=== PATIENT | male | born 1970 | race Caucasian/White ===

== ENCOUNTER → 2017-12-08 | Outpatient (CLI) | payer OTHER | LOC: FIMAGING 18:14 | PROVIDERS: ATTEND Family Medicine | DX: M75.42 Impingement syndrome of left shoulder (principal); S43.432A Superior glenoid labrum lesion of left shoulder, initial encounter; X58.XXXA Exposure to other specified factors, initial encounter ==

== ENCOUNTER 2018-01-28 13:39 | Emergency (ER) | payer OTHER ==
--- NOTE | 2018-01-28 15:02 | EDPHY ---
H & P Stated Complaint: Slight bleeding in throat p tonsilectomy [employer]. - Personal History Current Tetanus/Diphtheria Vaccine: Unsure - Medical/Surgical History Hx Asthma: No Hx Chronic Respiratory Disease: No Hx Diabetes: No Hx Cardiac Disease: No Hx Renal Disease: No Hx Cirrhosis: No Hx Alcoholism: No Hx HIV/AIDS: No Hx Splenectomy or Spleen Trauma: No Other PMH: tonsillectomy, - Social History Smoking Status: Never smoked Time Seen by Provider: 01/28/18 15:01 HPI/ROS: CHIEF COMPLAINT: "My tonsils are bleeding" HISTORY OF PRESENT ILLNESS: 47-year-old male postop day 4 post tonsillectomy performed by Dr Mckeon at [facility] complaining of swallowing blood and tonsillar bleeding. Contacted his ENT surgeon who recommend he go to the closest ER for evaluation. Pain is controlled. No dizziness. No chest pain. No dyspnea. PHYSICAL EXAM (Prior to examination, patient consented to physical exam, hands were washed and my usual and customary physical exam procedures followed) 1) GENERAL: Well-developed, well-nourished, alert and oriented. Appears to be in no acute distress. 2) HEAD: Normocephalic 3) HEENT: sclera anicteric . Post surgical changes noted to the bilateral tonsils with no active bleeding. When he expectorates a moderate amount of blood is in his phlegm. Airway is patent. 4) LUNGS: Breathing comfortably. (Daniel Dougherty) Constitutional: Initial Vital Signs Temperature (C) 36.5 C 01/28/18 14:00 Heart Rate 74 01/28/18 14:00 Respiratory Rate 16 01/28/18 14:00 Blood Pressure 127/72 H 01/28/18 14:00 O2 Sat (%) 98 01/28/18 14:00 O2 Delivery Mode Room Air Allergies/Adverse Reactions: celecoxib [From Celebrex] Allergy (Verified 01/28/18 13:59) Home Medications: Medication Instructions Recorded Cephalexin [Keflex (*)] 500 mg PO QID #28 cap 08/24/10 Hydrocodone Bit/Acetaminophen 1 - 2 tab PO Q4-6PRN PRN #11 tab 08/24/10 [Vicodin 5/500] Phenazopyridine HCl [Pyridium] 100 mg PO TID #6 tab 08/24/10 Medical Decision Making ED Course/Re-evaluation: 3:25 p.m.: Consultation with ENT VITOR Doran. Either she or Dr Heredia will come to ER to evaluate patient. 3:30 p.m.: Dr. Zach Bonds in the ER to evaluate patient 3:45 p.m.: CHARANJIT ADLER recommends IV Decadron, IV fluids, analgesia, will recheck patient in a short period after silver nitrate cautery was performed by themselves in the ER. 4:30 p.m.: ENT VITOR Doran has re-evaluated the patient, he remains hemostatic. Patient may be discharged at this time. He has been given usual and customary ENT precautions instructions. He feels comfortable being discharged. I saw this patient independently based on established practice protocols. Care of patient under supervision of secondary supervising physician Dr Loja with whom I discussed case. (Daniel Dougherty) - Data Points Medications Given: Discontinued Medications Dexamethasone (Decadron Injection) 10 mg IVP EDNOW ONE Stop: 01/28/18 15:52 Last Admin: 01/28/18 16:12 Dose: 10 mg Sodium Chloride (Ns) 1,000 mls @ 0 mls/hr IV ONCE ONE PRN Reason: Wide Open Stop: 01/28/18 15:57 Last Admin: 01/28/18 15:45 Dose: 1,000 mls Morphine Sulfate (Morphine) 4 mg IVP EDNOW ONE Stop: 01/28/18 15:52 Last Admin: 01/28/18 16:12 Dose: 4 mg Departure - Departure Disposition: Home, Routine, Self-Care Clinical Impression: Post-tonsillectomy hemorrhage Condition: Good Instructions: Tonsillectomy (DC) Additional Instructions: Return to the ER if you develop further bleeding from her tonsils, if you develop difficulty swallowing worsening pain or any other symptoms that concern you. Referrals: Zach Bonds MD [Medical Doctor] - 2-3 days, call for appt.
[2018-01-28] MEDS ORDERED: DEXAMETHASONE 10 MG/ML VIAL IVP ONE (15:51)
[2018-01-28] MEDS ORDERED: NS 1,000 ML IV ONE (15:56)
[2018-01-28] MEDS ORDERED: DEXAMETHASONE 4 MG/ML VIAL ONE (16:01)
[2018-01-28 16:15] VITALS: BP 116/75
--- NOTE | 2018-01-28 16:36 | PDCONSULT ---
Senior Environmental Engineer Note: ENT CONSULTATION: REASON FOR CONSULTATION: Post tonsillectomy bleeding HISTORY OF PRESENT ILLNESS: Patient reports he had tonsillectomy with Dr. Mckeon at [facility] Wednesday01/24/18. He notes some bleeding for last 2 days. It has been off and on. Coughing and spitting up blood. He has tried using ice water rinses. Afrin intranasally as well as topically to oropharynx. He was instructed to come in to ER today by his ENT provider. Denies dizziness, light- headedness, dyspnea. Has been on Dilaudid and Advil for pain. ALLERGIES: Celebrex- rash PAST MEDICAL HISTORY: non-contributory FAMILY HISTORY: non-contributory MEDICATIONS: See full list. PHYSICAL EXAM: Vital signs stable. Normocephalic, atraumatic. In no acute distress. Oropharynx notable for oozing right anterior tonsillar pillar. Eschar bilateral tonsillar fossae. Airway patent. He is breathing well. Skin without rashes. PROCEDURES: Dr. Bonds performed cautery with silver nitrate to right anterior tonsillar fossa. Bleeding controlled. Patient tolerated well. He was monitored for further bleeding. Reassessed at 4:30 pm. IMPRESSION: Post tonsillectomy bleed controlled with silver nitrate. Recommend IV fluids, 8 mg decadron, pain control while in ED. Okay for discharge when stable. Discussed risk for further bleeding. Reviewed ER precautions. I did give hand written prescriptions for hycet and decadron taper. I have recommended he stop advil. Follow up with ENT as planned for post op visit. Patient was evaluated and treated by myself and Dr. Bonds.
== END 2018-01-28 16:55 | disposition home or self-care (01) ==
DX: J95.830 Postprocedural hemorrhage of a respiratory system organ or structure following a respiratory system procedure (principal)
CPT/HCPCS: 96374; J1100; J2270